=== PATIENT | male | born 1995 | race Hispanic/Latino ===

== ENCOUNTER 2020-07-04 04:49 | Emergency (ER) | payer OTHER | END 2020-07-04 05:08 | LOC: EDH 04:49 | DX: Z02.83 Encounter for blood-alcohol and blood-drug test (principal) | CPT/HCPCS: 36415 ==

== ENCOUNTER 2020-08-26 22:57 | Emergency (ER) | payer OTHER | END 2020-08-26 23:43 | LOC: EDH 22:57 | DX: Z02.83 Encounter for blood-alcohol and blood-drug test (principal) ==